=== PATIENT | female | born 1985 | race Hispanic/Latino ===

== ENCOUNTER 2017-07-12 10:26 | Day surgery (SDC) | payer BC, OTHER ==
[2017-07-11 13:48] VITALS: BMI 20.7
[2017-07-12 11:37] LABS: BASO # 0.1 K/uL (0.0-0.2); BASO % 1.4 % (0.0-2.0); EOS # 0.3 K/uL (0.0-0.7); EOS % 6.6 % (0.0-4.0); HEMOGLOBIN 13.7 g/dL (12.0-16.0); LYMPH # 0.8 K/uL (1.0-4.3); LYMPH % 19.1 % (20.0-40.0); MEAN CELL VOLUME 91.2 fl (81.0-99.0); MEAN CORPUSCULAR HEMOGLOBIN 30.6 pg (27.0-31.0); MEAN CORPUSCULAR HGB CONC 33.5 g/dL (33.0-37.0); MEAN PLATELET VOLUME 7.8 fl (7.2-11.7); MONO # 0.4 K/uL (0.0-0.8); MONO % 10.5 % (0.0-10.0); NEUT # 2.5 K/uL (1.8-7.0); NEUT % 62.4 % (50.0-75.0); NRBC % 0.3 % (0.0-0.0); RBC 4.47 Mil/uL (3.80-5.20); RED CELL DISTRIBUTION WIDTH 13.1 % (11.5-14.5); WHITE BLOOD COUNT 3.9 K/uL (4.8-10.8)
[2017-07-12] MEDS ORDERED: Lactated Ringer's 1,000 ML IV ONE ×4 (11:45→17:04)
[2017-07-12] MEDS ORDERED: Midazolam 2 MG/2 ML VIAL ONE (12:39)
[2017-07-12] MEDS ORDERED: Rocuronium 10 mg/ml (5 ml) ONE ×2 (12:39→15:18)
[2017-07-12] MEDS ORDERED: ePHEDrine 50 mg/ml Inj ONE (12:39)
[2017-07-12] MEDS ORDERED: Succinylcholine 200 mg/10 ml Inj IV ONE (12:39)
[2017-07-12] MEDS ORDERED: Propofol 10 mg/ml Inj (20 ML) ONE (12:39)
[2017-07-12] MEDS ORDERED: Bupivacaine HCl 0.5% PF (30 ml) Inj ONE (12:43)
[2017-07-12] MEDS ORDERED: Bupivacaine HCl 0.25% PF (10 ml) Inj ONE (15:09)
[2017-07-12] MEDS ORDERED: Dexamethasone 4 mg/1 ml ONE (15:09)
[2017-07-12] MEDS ORDERED: Silver Nitrate Topical - Stick TOP ONE (15:45)
[2017-07-12] MEDS ORDERED: Silver Nitrate Topical - Stick ONE (15:46)
[2017-07-12] MEDS ORDERED: Morphine 4 MG/ML VIAL IVP PRN (16:22)
[2017-07-12] MEDS ORDERED: Oxycodone/Acetaminophen 5/325 mg Tab PO PRN (16:22)
[2017-07-12] MEDS ORDERED: HYDROmorphone 0.5 mg/0.5 ml ISec IVP PRN (16:27)
--- NOTE | 2017-07-12 16:27 | PCM.ANESB5 ---
Transverse Abdominis Block - Transverse Abdominis Plane Date of Procedure: 07/12/17 Anesthesiologist: Dominick Pre-Procedure Diagnosis: Endometriosis Post-Procedure Diagnosis: Same Procedure Performed: Transverse Abdominis Plane Nerve Block Left, Transverse Abdominis Plane Nerve Block Right - Procedure Transverse Abdominis Plane Nerve Block: The procedure was explained to the patient that it is for post-operative pain management and would be performed after surgery. Consent was obtained prior to surgery after a thorough discussion with the patient regarding the benefits and possible complications of transverse abdominis plane block. After the surgery had concluded and before the patient emerged from general anesthesia, time-out was held with the circulating nurse to re-confirm the appropriate block. With the patient in supine position, the ultrasound probe was placed transverse to the abdominal wall at the mid-axillary line above the iliac crest of the appropriate side. The skin, subcutaneous tissue, fat, external oblique muscle, internal oblique muscle, and the transverse abdominis muscle were identified. The general area of the block site was then prepped with Betadine three times. At this point, a # 21-gauge Stimuplex 4-inch needle was inserted posterior to and in plane with the ultrasound probe and directed anteriorly. Needle was advanced under direct ultrasound visualization until it reached the plane between the internal oblique and transverse abdominis muscles. After appropriate placement, 2mL of local anesthetic solution was injected. When the transverse abdominis plane was observed expanding in an ellipsoid way, the rest of the solution was slowly injected. A total of ___20___ mL of __0.25___ % __ bupivicaine was used for this block. The needle was then removed and sterile dressing was applied. Similarly, the same procedure was performed on the other side using the same medications. The patient had stable vital signs throughout and had no untoward complications after emergence from general anesthesia in the recovery room.
[2017-07-12] MEDS ORDERED: Lactated Ringer's 1,000 ML IV SCH ×3 (16:30)
[2017-07-12 19:55] VITALS: O2SAT 100
[2017-07-12 22:51] VITALS: BP 107/70; PULSE 70; RESP 20; TEMP 99.5
--- NOTE | 2017-08-02 09:31 | PCM.OP ---
Operative Report - Operative Report Date of Surgery/Procedure: 07/12/17 Time of Surgery/Procedure: 10:00 Surgeon: Dr. Cali Trammell Drying Room Operator: Dr. Ministerio Levy Anesthesia/Sedation: general/Dr. Hong Pre-Operative Diagnosis: abdominal pain, endometriosis and umbilical hernia Post-Operative Diagnosis: same Indication for Surgery: as above Operative Findings: as above Procedure/Operation Description: 1-Excision perirectal endometriosis (times four ). 2-Appendectomy. 3-Repair umbilical hernia. Brief History: this 31 year old woman was brought to the operating room by Dr. Levy when he noted an umbilical hernia upon enetring the abdomen as well as intestinal involvement of endometriosis. Intraoperative general surgery consultation was requested. Description of the Procedure: Dr. Levy had alredy intiated the operation robotically (separate dictation Dr. Levy). After taking control of the robotic console the first of four rectal elsions was incised circumferentially with electrocautery and excised en-bloc with blunt and sharp dissection. This first lesion was marked and sent topathology separately. Lesions numer two, three and four were excised in a similar fashion, appropriately marked and sent to pathology separately. The appendix was then retracted anteriorly and the mesentery was dessicated with particular attention to the appedniceal artery. Then the base was ligated with three 2-0 vicryl endoloops, trasected and sent to patholgy separately. The oepration was then turned over to Dr. Levy ( separate dictation). Once he completed the operation I again took over and repaired the umbilical hernia defect with multiple interrupted 2-0 PDS sutures. The skin was clsoed with 4-0 monocryl. The operation was then again turned over to Dr. Levy (separate dictation Dr. Levy). Estimated Blood Loss: 20 cc Complications: none Specimen: perirectal endometriosis (times four). appendix Discharge & Condition: stable
--- NOTE | 2017-08-02 23:37 | OP ---
PROCEDURE DATE: 07/12/2017 PREOPERATIVE DIAGNOSES: Pelvic pain, dysmenorrhea, dyspareunia, rule out endometriosis. POSTOPERATIVE DIAGNOSES: Pelvic pain, dysmenorrhea, dyspareunia, rule out endometriosis plus pelvic endometriosis affecting the pelvis and the appendix. PROCEDURE PERFORMED: Cystoscopy with bilateral ureteral catheterization and injection of dye, diagnostic hysteroscopy, da Chari robotic operative laparoscopy, excision of endometriosis, bilateral ureterolysis and separately by Dr. Trammell, excision of perirectal mas and appendectomy. SURGEON: Ministerio Levy MD TYPE OF ANESTHESIA: General endotracheal. ESTIMATED BLOOD LOSS: Minimal. COMPLICATIONS: None. SPECIMEN: Multiple samples of peritoneum containing endometriosis obtained from the left periureteral area, posterior cervical, perirectal area, periureteral right area, uterosacral area as well as an area on the fallopian tube on the right hand side as well as the appendix. INDICATION FOR THE PROCEDURE: The patient is a 32-year-old female with a history of dysmenorrhea, dyspareunia and pelvic pain quiet significant that was resistant to medical therapy. Upon examination in the office, the patient showed evidence of acute tenderness in both right and left side suggestive of endometriosis. She was counseled with regards to risks and benefits of the surgery and likelihood of the procedure would solve her problems and she signed consent and was taken to the OR. DESCRIPTION OF PROCEDURE: After adequate anesthesia was obtained, the patient was placed in a dorsal lithotomy position. She was prepped and draped, the surgeon was gowned and gloved. At this point, attention was in the vaginal area where a cystoscope was inserted into the bladder and the bladder was distended revealing to be normal size with no evidence of lesions or tumors or any evidence of interstitial cystitis. At this point, both the ureteral ostia were observed to be in the normal anatomical position. The left ureteral ostia was catheterized with a 5-[place] open ended catheter stent, all the way to the distal ureter and 5 mL of IC-Green were injected. The catheter was then removed. At this time, a contralateral ureter was also cannulated all the way to the distal ureter and 5 mL of IC-Green were also injected. At this point, a cystoscope was removed and a 16-[place] Mccormick was inserted into the bladder. At this point, attention was in the vaginal area where a speculum was placed in the vagina, the anterior lip of the cervix was grasped. The cervix was gently dilated and a hysteroscopy was performed revealing a normal sized cavity with no evidence of polyps or fibroids. Both tubal ostia were visualized. At this point, attention was in the abdominal area, where after regowning and regloving an open laparoscopy was performed according to standard procedure and by incising the fascia sharply in the skin and in the peritoneum in a blunt fashion. A cannula was inserted and the abdomen was insufflated. Under direct visualization, three additional ports were inserted, left upper quadrant, left mid quadrant and right upper quadrant. At this point, the PHAR[employer] Xi robot was attached. The findings were as follows, the upper abdomen was appeared to be normal. The appendix appeared to be abnormally looking both indurated and with danilo-appendiceal adhesions. There was evidence of endometriosis implant in the pelvis and cul-de-sac in both on right and left pelvic side harris in the posterior cervical area. The first part of the surgery consistent in addressing the left pelvic side wall where after identifying the ureter utilizing fluorescent visualization, the retroperitoneum was entered. The ureter was then progressively dissected off and lateralized and the peritoneal medialized with full excision extending from the pelvic brim all the way with upper limit of the excision being the utero-ovarian ligament and lower limit being in the uterosacral ligament. At this point, the area of peritoneum containing endometriosis was excised. The incision continued below the uterosacral ligament with an area of endometriosis extending to the left cul-de-sac area. At this point, a transverse incision was made in the posterior aspect of the cervix and the rectovaginal space was then dissected and entered and an area of peritoneum containing endometriosis in the cul-de-sac area was excised. Attention now was on the right hand side where again the ureter was identified using fluorescent technology, the retroperitoneum was entered and progressive dissection was performed. the peritoneum and progressively lateralized in the ureter and excising an area of endometriosis containing peritoneum. The excision extended all the way to the right ovarian fossa. Again, the incision was passed the uterosacral ligament in the right all the way to the right cul-de-sac. There was some lesions in the perirectal area as well as on the rectal and they were excised by Dr. Trammell from General Surgery. Because the appendix look abnormally, it was also removed by Dr. Trammell, will dictate also this part separately. At this point, it was checked for hemostasis, appeared to be excellent. All the instruments were removed and the abdomen desufflated. The incision were closed in layers with 0 PDS for the fascia and 4-0 Monocryl for the skin. At the end of the procedure, all tapes and instruments counts were correct. The patient tolerated the procedure well and was taken to recovery room in excellent condition. Ministerio Levy MD MTDGeoff
== END 2017-07-12 22:15 | disposition home or self-care (01) ==
LOC: H.OPSURG 10:26 → UNDOADMOB 19:43 → H.PEDS 19:43 → H.OPSURG 22:15 → UNDODISOB 22:15
PROVIDERS: ATTEND Obstetrics & Gynecology Reproductive Endocrinology
DX: R10.2 Pelvic and perineal pain (principal); N94.6 Dysmenorrhea, unspecified; N94.10 Unspecified dyspareunia; N80.0 Endometriosis of uterus; N80.5 Endometriosis of intestine
CPT/HCPCS: 36415; 44970; 52332; 58558; 58662; 85025; 86850; 86900; 88304; 88305; C1729; J0131; J0330; J1100; J1885; J2001; J2250; J2270; J2405; J2704; J3010; J7030; J7120